=== PATIENT | male | born 1950 | race Caucasian/White ===

== ENCOUNTER 2017-10-08 16:04 | Emergency (ER) | payer OTHER, MEDICARE ==
[~2017-10-08] VITALS: Ht 182.9 cm; Wt 105.0 kg
[~2017-10-08 16:04] MED LIST: ATEN-100 PO; CLON.5 PO; COLC1TAB7 PO; CYAN100017 PO; DUONI NEB; HYDR-2768 PO; LACT PO; LEVO750T33 PO; MUCI600T PO; PRED10PA PO; PROT40TA PO; RIVA15 PO; SYMB160A INH; VENL150T14 PO; VENTAER INH; VIAG100T PO; [UNRECOGNIZED DRUG - CODE] EACH EYE
[2017-10-08 16:06] VITALS: BP 133/71; PULSE 86; RESP 12; TEMP 98.2; O2SAT 99
[2017-10-08] MEDS ORDERED: MORPHINE SULFATE 4 MG/ML INJ IV PUSH ONE (17:15)
[2017-10-08] MEDS ORDERED: ONDANSETRON HCL 4 MG/2 ML VIAL IVP ONE (17:15)
[2017-10-08] MEDS ORDERED: ATEN25TA PO (17:22)
[2017-10-08] MEDS ORDERED: ALFU10TA3 (17:22)
[2017-10-08] MEDS ORDERED: CHLO.12%30 SWISH-SPIT (17:22)
[2017-10-08] MEDS ORDERED: WARF-23 PO (17:22)
[2017-10-08] MEDS ORDERED: DICL1GEL7 TOPICAL (17:22)
[2017-10-08] MEDS ORDERED: VIAG100T PO (17:22)
[2017-10-08] MEDS ORDERED: COLC1CAP3 PO (17:22)
[2017-10-08] MEDS ORDERED: CYAN100025 SL (17:22)
[2017-10-08] MEDS ORDERED: OMEP20TA93 PO (17:22)
[2017-10-08] MEDS ORDERED: LIDO0.052 (17:22)
[2017-10-08] MEDS ORDERED: ALLO300T2 PO (17:22)
[2017-10-08] MEDS ORDERED: AMLO2.5T PO (17:22)
[2017-10-08] MEDS ORDERED: LISI40TA PO (17:22)
[2017-10-08] MEDS ORDERED: VENL75CA44 PO (17:22)
[2017-10-08] MEDS ORDERED: ASPI-183 PO (17:22)
[2017-10-08] MEDS ORDERED: CETI10 (17:22)
[2017-10-08] MEDS ORDERED: MAPA325T PO (17:22)
--- NOTE | 2017-10-08 17:45 | PD ---
HPI Chief Complaint: Abdominal Pain Time Seen by Provider: 17:09 Travel History International Travel<30 days: No Contact w/Intl Traveler<30days: No Traveled to known affect area: No History of Present Illness HPI 67-year-old male that presents to the ED for evaluation of abdominal pain. Patient states that the pain is only to the left part of the abdomen. Mainly on the left upper as well as the left lower. Denies any tinnitus or bowel movements. No nausea or vomiting. This going since yesterday. She has a history of diverticulitis in the past and states that he feels somewhat similar. Per patient the pain is 4 out of 10 if he doesn't move but if he moves or coughs the pain gets worse. Denies any chest pain. No shortness of breath. No Blood thinners. Has a history of ACS. No surgeries to his belly ever. Hasn't taken anything for this. [facility] for [facility]. PFSH Past Medical History Hx Anticoagulant Therapy: Yes Autoimmune Disease: Yes (GOUT) Anxiety: No Depression: No Heart Rhythm Problems: Yes (NOT SURE BUT ON BLOOD THINNER FOR HEART) Cancer: No Cardiovascular Problems: No Chemotherapy: No COPD: Yes Cerebrovascular Accident: No Diabetes: No Diminished Hearing: No Deep Vein Thrombosis: Yes Endocrine: No Genitourinary: No Hypertension: Yes Immune Disorder: No Neurologic: Yes (NEUROPATHY ) Psychiatric: Yes (PTSD) Reproductive: No Respiratory: Yes Pneumonia: Yes Tetanus Vaccination: < 5 Years Influenza Vaccination: No Past Surgical History Abdominal Surgery: No Body Medical Devices: PT HAS SHRAPNEL IN RIGHT NECK Cardiac Surgery: No Ear Surgery: No Endocrine Surgery: No Eye Surgery: No Genitourinary Surgery: Yes (HEMMROIDECTOMY) Gynecologic Surgery: No Hysterectomy: No Oral Surgery: No Thoracic Surgery: No Other Surgery: Yes (RIGHT KNEE REPLACEMENT AND R NECK SHRAPNEL, HEMORRHOIDECTOMY) Social History Alcohol Use: Yes (OCC) Tobacco Use: No (QUIT 2008) Substance Use: No Allergies-Medications (Allergen,Severity, Reaction): Coded Allergies: pentazocine (Unverified Allergy, Unknown, 10/08/17) ibuprofen (Unverified Adverse Reaction, Severe, 10/08/17) Reported Meds & Prescriptions Reported Meds & Active Scripts Active Hydrocodone-Acetamin 5-325 mg (Hydrocodone/Acetaminophen) 5 Mg-325 Mg Tablet 1 Tab PO Q6HR PRN Cipro (Ciprofloxacin HCl) 500 Mg Tab 500 Mg PO BID 10 Days Flagyl (Metronidazole) 500 Mg Tab 500 Mg PO BID 10 Days Reported Warfarin 5 Mg Tab 5 Mg PO DAILY Venlafaxine ER 24 HR (Venlafaxine HCl) 75 Mg Cap 75 Mg PO DAILY Viagra (Sildenafil Citrate) 100 Mg Tab 100 Mg PO DAILY PRN Omeprazole 20 Mg Tab 20 Mg PO DAILY Lisinopril 40 Mg Tab 40 Mg PO DAILY Lidocaine 4% Transparent Topical Dressing 4 % Kit Diclofenac Topical 1% Gel 1 Applic TOPICAL QID B-12 (Cyanocobalamin) 1,000 Mcg Subl 1,000 Mcg SL DAILY Colchicine 0.6 Mg Cap 0.6 Mg PO DAILY Cetirizine (Cetirizine HCl) 10 Mg Tab 10 Mg DAILY Atenolol 25 Mg Tab 25 Mg PO DAILY Aspirin 325 Mg Tab 325 Mg PO DAILY Amlodipine (Amlodipine Besylate) 2.5 Mg Tab 2.5 Mg PO DAILY Allopurinol 300 Mg Tab 300 Mg PO DAILY Alfuzosin HCl ER (Alfuzosin HCl) 10 Mg Tab Mapap (Acetaminophen) 325 Mg Tab 325 Mg PO Q4-6H PRN Chlorhexidine Gluconate (Mouth) Liq (Chlorhexidine Gluconate) 0.12% Soln 15 Ml SWISH-SPIT BID Review of Systems Except as stated in HPI: all other systems reviewed are Neg Physical Exam Narrative GENERAL: SKIN: Warm and dry. HEAD: Atraumatic. Normocephalic. EYES: Pupils equal and round. No scleral icterus. No injection or drainage. ENT: No nasal bleeding or discharge. Mucous membranes pink and moist. NECK: Trachea midline. No JVD. CARDIOVASCULAR: Regular rate and rhythm. RESPIRATORY: No accessory muscle use. Clear to auscultation. Breath sounds equal bilaterally. GASTROINTESTINAL: Abdomen soft, tender to palpation of the left upper and left lower quadrant, nondistended. Hepatic and splenic margins not palpable. MUSCULOSKELETAL: Extremities without clubbing, cyanosis, or edema. No obvious deformities. Full range of motion of the upper and lower extremities bilaterally. 2+ pulses bilaterally. NEUROLOGICAL: Awake and alert. No obvious cranial nerve deficits. Motor grossly within normal limits. Five out of 5 muscle strength in the arms and legs. Normal speech. PSYCHIATRIC: Appropriate mood and affect; insight and judgment normal. Data Data Last Documented VS Vital Signs Date Time Temp Pulse Resp B/P (MAP) Pulse Ox O2 Delivery O2 Flow Rate FiO2 10/08/17 18:43 68 17 134/78 (96) 97 Room Air 10/08/17 16:06 98.2 Orders Orders Complete Blood Count With Diff (10/08/17 17:15) Comprehensive Metabolic Panel (10/08/17 17:15) Lipase (10/08/17 17:15) Lactic Acid (10/08/17 17:15) Prothrombin Time / Inr (Pt) (10/08/17 17:15) Act Partial Throm Time (Ptt) (10/08/17 17:15) Urinalysis - C+S If Indicated (10/08/17 17:15) Ct Abd/Pel W Iv Contrast(Rout) (10/08/17 17:15) Iv Access Insert/Monitor (10/08/17 17:15) NPO (10/08/17 17:15) Morphine Inj (Morphine Inj) (10/08/17 17:15) Ondansetron Inj (Zofran Inj) (10/08/17 17:15) Iohexol 350 Inj (Omnipaque 350 Inj) (10/08/17 19:26) Metronidazole 500 Mg Inj (Flagyl 500 Mg (10/08/17 20:30) Ciprofloxacin 200 Mg Premix (Cipro 200 M (10/08/17 20:30) Morphine Inj (Morphine Inj) (10/08/17 20:30) Ondansetron Inj (Zofran Inj) (10/08/17 20:30) Ed Discharge Order (10/08/17 20:32) Labs Laboratory Tests Test 10/08/17 17:40 10/08/17 17:50 Urine Color YELLOW Urine Turbidity CLEAR Urine pH 7.0 Urine Specific Evans 1.021 Urine Protein NEG mg/dL Urine Glucose (UA) NEG mg/dL Urine Ketones NEG mg/dL Urine Occult Blood NEG Urine Nitrite NEG Urine Bilirubin NEG Urine Urobilinogen 2.0 MG/DL Urine Leukocyte Esterase NEG Urine RBC 2 /hpf Urine WBC 1 /hpf Urine Squamous Epithelial Cells <1 /hpf Urine Mucus FEW /lpf Microscopic Urinalysis Comment CULT NOT INDICATED White Blood Count 7.9 TH/MM3 Red Blood Count 4.47 MIL/MM3 Hemoglobin 14.0 GM/DL Hematocrit 40.6 % Mean Corpuscular Volume 90.9 FL Mean Corpuscular Hemoglobin 31.3 PG Mean Corpuscular Hemoglobin Concent 34.4 % Red Cell Distribution Width 15.4 % Platelet Count 194 TH/MM3 Mean Platelet Volume 8.1 FL Neutrophils (%) (Auto) 68.5 % Lymphocytes (%) (Auto) 21.6 % Monocytes (%) (Auto) 8.4 % Eosinophils (%) (Auto) 1.1 % Basophils (%) (Auto) 0.4 % Neutrophils # (Auto) 5.4 TH/MM3 Lymphocytes # (Auto) 1.7 TH/MM3 Monocytes # (Auto) 0.7 TH/MM3 Eosinophils # (Auto) 0.1 TH/MM3 Basophils # (Auto) 0.0 TH/MM3 CBC Comment DIFF FINAL Differential Comment Prothrombin Time 24.8 SEC Prothromb Time International Ratio 2.5 RATIO Activated Partial Thromboplast Time 45.7 SEC Blood Urea Nitrogen 17 MG/DL Creatinine 1.14 MG/DL Random Glucose 94 MG/DL Total Protein 7.5 GM/DL Albumin 3.8 GM/DL Calcium Level 9.1 MG/DL Alkaline Phosphatase 73 U/L Aspartate Amino Transf (AST/SGOT) 24 U/L Alanine Aminotransferase (ALT/SGPT) 28 U/L Total Bilirubin 0.5 MG/DL Sodium Level 138 MEQ/L Potassium Level 4.2 MEQ/L Chloride Level 104 MEQ/L Carbon Dioxide Level 30.5 MEQ/L Anion Gap 4 MEQ/L Estimat Glomerular Filtration Rate 64 ML/MIN Lactic Acid Level 0.8 mmol/L Lipase 174 U/L MDM Medical Decision Making Medical Screen Exam Complete: Yes Emergency Medical Condition: Yes Medical Record Reviewed: Yes Interpretation(s) CBC & BMP Diagram 10/08/17 17:50 Total Protein 7.5, Albumin 3.8, Calcium Level 9.1, Alkaline Phosphatase 73, Aspartate Amino Transf (AST/SGOT) 24, Alanine Aminotransferase (ALT/SGPT) 28, Total Bilirubin 0.5 CT shows diverticulitis. No other acute disease Differential Diagnosis Diverticulitis versus acute abdomen versus pancreatitis versus constipation versus gastroenteritis Narrative Course 67-year-old male that presents to the ED for evaluation of left-sided abdominal pain. Patient was properly examined and was found to have signs and symptoms consistent with abdominal pain of the left side. Unclear etiology at this time with definite concerning for diverticulitis. Labs and imaging were ordered. Labs and imaging showed consistent with diverticulitis. Appears to be well. No sign of other infection. At this time recommendations for trial of antibiotic and pain medication. Patient agrees. Patient was given another dose of pain medication and antibiotics here in the ER. He will be sent with prescriptions for Flagyl and Cipro as well as Lortab. Patient agrees with plan. Follow with PCP. See ED worsening symptoms. Diagnosis Primary Impression: Diverticulitis large intestine Qualified Codes: K57.32 - Diverticulitis of large intestine without perforation or abscess without bleeding Patient Instructions: General Instructions, Narcotic given in the ED Additional Instructions: Take medications as prescribed. Follow with PCP. See ED worsening symptoms. Liquid diet until better. Med/Other Pt SpecificInfo: Prescription(s) given Scripts Hydrocodone/Acetaminophen (Hydrocodone-Acetamin 5-325 mg) 5 Mg-325 Mg Tablet 1 TAB PO Q6HR Y for PAIN SCALE 1 TO 10, #12 Prov: Fredrick Henriquez MD 10/08/17 Ciprofloxacin (Cipro) 500 Mg Tab 500 MG PO BID for Infection for 10 Days, #20 TAB 0 Refills Prov: Fredrick Henriquez MD 10/08/17 Metronidazole (Flagyl) 500 Mg Tab 500 MG PO BID for Infection for 10 Days, #20 TAB 0 Refills Prov: Fredrick Henriquez MD 10/08/17 Disposition: 01 DISCHARGE HOME Condition: Stable Brandon Hennessy Oct 08, 2017 17:45
[2017-10-08 18:26] LABS: AUTOMATED NEUTROPHIL # 5.4 TH/MM3 (1.8-7.7); BASOPHIL % 0.4 % (0.0-2.0); EOSINOPHIL # 0.1 TH/MM3 (0-0.4); EOSINOPHIL % 1.1 % (0.0-4.0); HEMATOCRIT 40.6 % (39.0-51.0); LYMPH % 21.6 % (9.0-44.0); LYMPHOCYTE # 1.7 TH/MM3 (1.0-4.8); MEAN CELL VOLUME 90.9 FL (80.0-100.0); MEAN CORPUSCULAR HEMOGLOBIN 31.3 PG (27.0-34.0); MEAN CORPUSCULAR HGB CONC 34.4 % (32.0-36.0); MEAN PLATELET VOLUME 8.1 FL (7.0-11.0); MONO % 8.4 % (0.0-8.0); MONOCYTE # 0.7 TH/MM3 (0-0.9); NEUT % 68.5 % (16.0-70.0); PLATELET COUNT 194 TH/MM3 (150-450); RED BLOOD COUNT 4.47 MIL/MM3 (4.50-5.90); RED CELL DISTRIBUTION WIDTH 15.4 % (11.6-17.2); WHITE BLOOD COUNT 7.9 TH/MM3 (4.0-11.0)
[2017-10-08 18:36] LABS: BILIRUBIN, URINE NEG (NEG); BLOOD, URINE NEG (NEG); GLUCOSE,URINE NEG (NEG); KETONE, URINE NEG (NEG); MUCUS URINE FEW /lpf (OCC); NITRITE,URINE NEG (NEG); SQUAMOUS EPITHELIAL CELL URINE <1 /hpf (0-5); URINE COLOR YELLOW (YELLW/STRAW); URINE LEUKOCYTE ESTERASE NEG (NEG)
[2017-10-08 18:40] LABS: ALBUMIN 3.8 GM/DL (3.4-5.0); ALT (GPT) 28 U/L (12-78); AST (GOT) 24 U/L (15-37); BICARBONATE 30.5 MEQ/L (21.0-32.0); BLOOD UREA NITROGEN 17 MG/DL (7-18); CALCIUM 9.1 MG/DL (8.5-10.1); CHLORIDE 104 MEQ/L (98-107); CREATININE 1.14 MG/DL (0.60-1.30); GLOMERULAR FILTRATION RATE 64 ML/MIN (>89); GLUCOSE,RANDOM 94 MG/DL (74-106); SODIUM (NA) 138 MEQ/L (136-145)
[2017-10-08 18:42] LABS: ALKALINE PHOSPHATASE 73 U/L (45-117); TOTAL BILIRUBIN ADULT 0.5 MG/DL (0.2-1.0); TOTAL PROTEIN 7.5 GM/DL (6.4-8.2)
[2017-10-08 18:43] VITALS: BP 134/78; PULSE 68; RESP 17; O2SAT 97
[2017-10-08 18:56] LABS: INTERNATIONAL NORMALIZED RATIO 2.5 RATIO; PROTHROMBIN TIME - PATIENT 24.8 SEC (9.8-11.6)
[2017-10-08] MEDS ORDERED: IOHEXOL 350 MG/ML 10 ML VIAL (for RAD DIAG) IVCONTRAST ONE (19:26)
--- NOTE | 2017-10-08 20:01 | RADRPT ---
EXAM DATE/TIME: 10/08/2017 19:21 [facility] COMPARISON: CT ABDOMEN & PELVIS W CONTRAST, July 16, 2014, 16:16. INDICATIONS : Left side abdominal pain. IV CONTRAST: 100 cc Omnipaque 350 (iohexol) IV ORAL CONTRAST: No oral contrast ingested. RADIATION DOSE: 11.09 CTDIvol (mGy) MEDICAL HISTORY : Chronic obstructive pulmonary disease. Hypertension. Deep venous thrombosis. SURGICAL HISTORY : Pelvic ORIF. ENCOUNTER: Initial ACUITY: 3 days PAIN SCALE: 4/10 LOCATION: Left abdomen. TECHNIQUE: Volumetric scanning of the abdomen and pelvis was performed. Using automated exposure control and ad justment of the mA and/or kV according to patient size, radiation dose was kept as low as reasonably achievable to obtain optimal diagnostic quality images. DICOM format image data is available electro nically for review and comparison. FINDINGS: LOWER LUNGS: The visualized lower lungs are clear. LIVER: Diffusely decreased hepatic density without intrahepatic ductal dilatation or focal mass. Gallbladder is unremarkable by CT. SPLEEN: Normal size without lesion. PANCREAS: Within normal limits. KIDNEYS: Normal in size and shape. There is no mass, stone or hydronephrosis. ADRENAL GLANDS: Within normal limits. VASCULAR: There is no aortic aneurysm. BOWEL/MESENTERY: Mild sigmoid and scattered diverticula in the descending colon. Prominent inflammatory stranding in t he mid to distal descending colon. No focal treatable fluid collection or significant free air. Remai cathi bowel unremarkable. ABDOMINAL WALL: Within normal limits. RETROPERITONEUM: There is no lymphadenopathy. BLADDER: No wall thickening or mass. REPRODUCTIVE: Within normal limits. INGUINAL: There is no lymphadenopathy or hernia. MUSCULOSKELETAL: Fixation hardware in the right pelvis. Osseous structures are otherwise intact. CONCLUSION: 1. Suspected diverticulitis in the mid to distal descending colon. No significant abscess or perforat ion at this time. Lewis Lehman MD on October 08, 2017 at 19:56 Board Certified Radiologist. This report was verified electronically.
[2017-10-08] MEDS ORDERED: ONDANSETRON HCL 4 MG/2 ML VIAL IV PUSH ONE (20:30)
[2017-10-08] MEDS ORDERED: MORPHINE SULFATE 2 MG/ML INJ IV PUSH ONE (20:30)
[2017-10-08] MEDS ORDERED: metroNIDAZOLE 500 MG INJ 100 ML IV ONE (20:30)
[2017-10-08] MEDS ORDERED: CIPROFLOXACIN 200 MG PREMIX 100 ML IV ONE (20:30)
[2017-10-08] MEDS ORDERED: HYDR-3516 PO (20:32)
[2017-10-08] MEDS ORDERED: CIPR-9 PO (20:32)
[2017-10-08] MEDS ORDERED: METR-1 PO (20:32)
[2017-10-08 20:43] VITALS: BP 124/66; PULSE 70; RESP 16; O2SAT 97
== END 2017-10-08 23:21 | disposition home or self-care (01) ==
LOC: NEPE 16:04
DX: K57.32 Diverticulitis of large intestine without perforation or abscess without bleeding (principal); I10 Essential (primary) hypertension; J44.9 Chronic obstructive pulmonary disease, unspecified; F43.10 Post-traumatic stress disorder, unspecified; Z86.718 Personal history of other venous thrombosis and embolism; Z87.891 Personal history of nicotine dependence; Z88.8 Allergy status to other drugs, medicaments and biological substances; Z88.6 Allergy status to analgesic agent; Z79.82 Long term (current) use of aspirin; Z79.01 Long term (current) use of anticoagulants; Z79.899 Other long term (current) drug therapy
CPT/HCPCS: 74177; 80053; 81001; 83605; 83690; 85025; 85610; 85730; 96374; 96375; 96376; 99284; J0744; J2270; J2405; Q9967